=== PATIENT | male | born 1980 | race Caucasian/White ===

== ENCOUNTER 2016-12-13 13:36 | Emergency (ER) | payer OTHER ==
[~2016-12-13] VITALS: Ht 167.6 cm; Wt 108.9 kg
[2016-12-13 13:38] VITALS: BP 137/89
--- NOTE | 2016-12-13 15:07 | NUR ---
PT TAKEN TO BED 8
--- NOTE | 2016-12-13 15:10 | NUR ---
35/M c/o lower back pain, sacral pain that started yesterday. Pt states "I was going to work and when I was getting into my car the pain started really bad." Pt describes pain as sharp, radiating to left groin, constant, 7/10. Denies any recent injury or trauma. Pt ambulates with steady gait. Denies fever or chills. Denies N/V/D. Denies any pain with urination. AOX4, clear speech. VSS. No distress noted. Pt sitting at bedside, in position of comfort. Awaiting ERMD.
--- NOTE | 2016-12-13 15:12 | NUR ---
Patient being evaluated by Dr. Hale at bedside.
[2016-12-13] MEDS ORDERED: DIAZEPAM PFS 10 MG/2 ML SYR IM ONE (15:15)
[2016-12-13] MEDS ORDERED: KETOROLAC 60 MG/2 ML VIAL IM ONE (15:15)
[2016-12-13 16:01] VITALS: BP 146/79
--- NOTE | 2016-12-13 16:01 | NUR ---
Chart checked and completed. The patient's care was reviewed and supervised by Sonam Hubbard RN.
--- NOTE | 2016-12-13 16:01 | NUR ---
Patient discharged with v/s stable. Written and verbal after care instructions given and explained. Patient alert, oriented and verbalized understanding of instructions. Ambulatory with steady gait. All questions addressed prior to discharge. ID band removed. Patient advised to follow up with PMD. Rx of VALIUM,MOTRIN,NORCO given. Patient educated on indication of medication including possible reaction and side effects. Opportunity to ask questions provided and answered.
== END 2016-12-13 16:01 | disposition home or self-care (01) ==
LOC: MED 13:36
DX: M54.5 Low back pain (principal)
CPT/HCPCS: 81002; 96372; 99284; J1885; J3360

== ENCOUNTER 2020-09-09 11:15 | Emergency (ER) | payer OTHER ==
[~2020-09-09] VITALS: Ht 167.6 cm; Wt 117.0 kg
[2020-09-09 11:25] VITALS: BP 122/84
[2020-09-09] MEDS ORDERED: HYDROcodone/APAP 5/325 MG 1 TAB TAB PO ONE (11:55)
[2020-09-09] MEDS ORDERED: KETOROLAC 30 MG/ML VIAL IM ONE (11:55)
[2020-09-09] MEDS ORDERED: MOT200 PO (12:16)
[2020-09-09] MEDS ORDERED: ACET-2619 PO (12:16)
[2020-09-09] MEDS ORDERED: CYCL10TA13 PO (12:16)
[2020-09-09 12:33] VITALS: BP 115/80
== END 2020-09-09 12:33 | disposition home or self-care (01) ==
LOC: MED 11:15
DX: S39.012A Strain of muscle, fascia and tendon of lower back, initial encounter (principal); M54.40 Lumbago with sciatica, unspecified side; Z79.899 Other long term (current) drug therapy; X58.XXXA Exposure to other specified factors, initial encounter; Y93.89 Activity, other specified; Y92.89 Other specified places as the place of occurrence of the external cause; Y99.8 Other external cause status
CPT/HCPCS: 96372; 99283; J1885

== ENCOUNTER 2023-09-30 14:01 | Emergency (ER) | payer OTHER ==
[~2023-09-30] VITALS: Ht 170.2 cm; Wt 124.7 kg
[~2023-09-30 14:01] MED LIST: ACET-2619 PO; CYCL-655 PO; MOT200 PO
[2023-09-30 14:06] VITALS: BP 142/94; PULSE 84; RESP 18; TEMP 97.9; O2SAT 97
== END 2023-09-30 14:35 | disposition home or self-care (01) ==
LOC: MED 14:01
DX: S91.202A Unspecified open wound of left great toe with damage to nail, initial encounter (principal); Z79.1 Long term (current) use of non-steroidal anti-inflammatories (NSAID); Z79.899 Other long term (current) drug therapy; W22.8XXA Striking against or struck by other objects, initial encounter; Y93.89 Activity, other specified; Y92.89 Other specified places as the place of occurrence of the external cause; Y99.8 Other external cause status
CPT/HCPCS: 99281

== ENCOUNTER 2023-12-07 23:22 | Emergency (ER) | payer OTHER ==
[~2023-12-07] VITALS: Ht 167.6 cm; Wt 123.4 kg
[2023-12-07 23:28] VITALS: BP 138/88; PULSE 73; RESP 14; TEMP 97.8; O2SAT 99
[2023-12-07] MEDS: IBUPROFEN 800 MG TAB PO ONE (23:46)
[2023-12-07 23:47] VITALS: BP 138/88; PULSE 73; RESP 14; TEMP 97.8
[2023-12-08 00:03] LABS: BASOPHILS # (AUTO) 0.1 K/uL (0.00-0.22); BASOPHILS % (AUTO) 0.6 % (0.0-2.0); EOSINOPHILS # (AUTO) 0.4 K/uL (0-0.4); EOSINOPHILS % (AUTO) 3.6 % (0.0-4.0); HEMOGLOBIN 15.8 g/dL (12.0-18.0); LYMPHOCYTES # (AUTO) 3.1 K/uL (2.0-11.5); LYMPHOCYTES % (AUTO) 26.7 % (20.5-51.1); MEAN CORPUSCULAR HEMOGLOBIN 28 pg (27-31); MEAN CORPUSCULAR HGB CONC 34 g/dL (33-37); MEAN CORPUSCULAR VOLUME 82.1 fL (80-94); MONOCYTES # (AUTO) 0.6 K/uL (0.8-1.0); MONOCYTES % (AUTO) 4.9 % (1.7-9.3); NEUTROPHILS # (AUTO) 7.4 K/uL (1.8-7.7); NEUTROPHILS % (AUTO) 64.2 % (42.2-75.2); PLATELET COUNT (AUTO) 254 K/uL (140-450); RED CELL DISTRIBUTION WIDTH 13.6 % (11.6-13.7); WHITE BLOOD COUNT (AUTO) 11.5 K/uL (4.8-10.8)
[2023-12-08 00:08] VITALS: O2SAT 99
[2023-12-08 00:13] LABS: ANION GAP 8.8 (8-16); CALCIUM 8.2 mg/dL (8.5-10.1); CARBON DIOXIDE 30.9 mmol/L (21-32); CREATININE 0.9 mg/dL (0.6-1.3); POTASSIUM 3.7 mmol/L (3.5-5.1)
[2023-12-08] MEDS ORDERED: ACET-10509 PO (01:33)
== END 2023-12-08 01:36 | disposition home or self-care (01) ==
LOC: MED 23:22
DX: R51.9 Headache, unspecified (principal); R03.0 Elevated blood-pressure reading, without diagnosis of hypertension; Z20.822 Contact with and (suspected) exposure to COVID-19; Z79.1 Long term (current) use of non-steroidal anti-inflammatories (NSAID); Z79.899 Other long term (current) drug therapy
CPT/HCPCS: 36415; 80048; 85025; 99283